=== PATIENT | male | born 1995 | race Hispanic/Latino ===

== ENCOUNTER 2018-06-29 02:55 | Emergency (ER) | payer OTHER ==
--- NOTE | 2018-06-29 09:10 | RAD ---
THREE VIEWS LEFT HAND: Date: 06-29-18 History: Trauma. Comparison: None available. FINDINGS: There is no evidence of a fracture, dislocation, or other osseous abnormality involving the left hand . IMPRESSION: No acute osseous abnormality. POS: [facility]
== END 2018-06-29 04:15 | disposition home or self-care (01) ==
LOC: MADERS 02:55
DX: S62.611A Displaced fracture of proximal phalanx of left index finger, initial encounter for closed fracture (principal); V49.9XXA Car occupant (driver) (passenger) injured in unspecified traffic accident, initial encounter

== ENCOUNTER 2021-02-27 10:01 | Outpatient (CLI) | payer OTHER | END 2021-02-27 10:02 | disposition home or self-care (01) | LOC: MADLAB 10:01 | DX: S02.91XA Unspecified fracture of skull, initial encounter for closed fracture (principal); I60.9 Nontraumatic subarachnoid hemorrhage, unspecified; Z98.890 Other specified postprocedural states | CPT/HCPCS: 70450 ==